=== PATIENT | female | born 1970 | race Two or more races ===

== ENCOUNTER 2019-12-11 06:36 | Day surgery (SDC) | payer OTHER ==
[~2019-12-11] VITALS: Ht 177.8 cm; Wt 144.2 kg
[2019-12-11] VITALS (9 sets, daily range): BP systolic 98–146; BP diastolic 55–89
[~2019-12-11 06:36] MED LIST: DEPAKOTE250 MG PO; LEVOTHYROXINE125 MCG ORAL; VENLAFAXINE HCL25 MG ORAL; ceFAZolin 1gm IVPB IVPB ONE; celeBREX 200mg Cap **SURGERY PATIENTS ONLY ORAL ONE; oxyCONTIN 20mg tab ORAL ONE
[2019-12-11] MEDS ORDERED: Ketorolac 30mg Inj ONE (08:19)
[2019-12-11] MEDS ORDERED: Bupivacaine 0.25% Inj 30ml INJ ONE (08:19)
[2019-12-11] MEDS ORDERED: Kenalog-40 1ml Vial ONE (08:19)
[2019-12-11] MEDS ORDERED: Lidocaine 1% 10mg/ml/Epi 0.005mg/ml 30ml vial INJ ONE (08:19)
[2019-12-11] MEDS ORDERED: Duramorph PF 5mg/10ml amp ONE (08:19)
[2019-12-11] MEDS ORDERED: Propofol 200mg/20ml IV ONE ×2 (08:27→08:44)
[2019-12-11] MEDS ORDERED: Lidocaine 1% MPF 10mg/ml 5ml ONE (08:27)
[2019-12-11] MEDS ORDERED: Midazolam 2mg/2ml Inj ONE (08:28)
[2019-12-11] MEDS ORDERED: fentaNYL 100 mcg/2 mL IV ONE (08:28)
[2019-12-11] MEDS ORDERED: LR 1000ml ONE (08:30)
[2019-12-11] MEDS ORDERED: Sterile Water Irrig 1000ml IRRIG ONE (08:30)
[2019-12-11] MEDS ORDERED: LR 1000ml 1,000 ML IVLG SCH (08:33)
--- NOTE | 2019-12-11 08:33 | Anethesia Preoperative Eval ---
Anesthesia Pre-op PMH/ROS General Date of Evaluation: Dec 11, 2019 Anesthesiologist: Gopi ASA Score: ASA 3 Mallampati Score Class I : Soft palate, uvula, fauces, pillars visible Class II: Soft palate, uvula, fauces visible Class III: Soft palate, base of uvula visible Class IV: Only hard plate visible Mallampati Classification: Class III Surgeon: Jaquan Diagnosis: left knee pain Surgical Procedure: left knee arthroscoyp Anesthesia History: none Family History: no anesthesia problems Allergies: Coded Allergies: No Known Allergies (Unverified , 12/10/19) Medications: see eMAR Patient NPO?: Yes NPO Date: Dec 11, 2019 NPO Time: 00:00 Past Medical History Cardiovascular: Denies: HTN, CAD, CT, valve dz, arrhythmia, other Pulmonary: Denies: asthma, COPD, VISHAL, other Gastrointestinal/Genitourinary: Denies: GERD, CRI, ESRD, other Neurologic/Psychiatric: Reports: depression/anxiety, other - bipolar; Denies: dementia, CVA, TIA Endocrine: Reports: hypothyroidism; Denies: DM, steroids, other HEENT: Denies: cataract (L), cataract (R), glaucoma, [place] (L), [place] (R), other Hematology/Immune: Reports: anemia; Denies: DVT, bleeding disorder, other Musculoskeletal/Integumentary: Reports: OA; Denies: RA, DJD, DDD, edema, other Other: obesity PSxH Narrative: acl repair, right breawst reduction, gastric bypass, helio, appy, jaw sx Anesthesia Pre-op Phys. Exam Physician Exam Last Vital Signs Date Time Temp Pulse Resp B/P (MAP) Pulse Ox O2 Delivery O2 Flow Rate FiO2 12/11/19 07:27 97.0 86 20 146/88 99 Room Air Constitutional: NAD Cardiovascular: RRR Respiratory: CTA Airway Exam Mallampati Score: Class III MO: limited Neck: short, obese ROM: limited Anesthesia Pre-op A/P Labs see chart Urine Test Test 12/11/19 06:55 Urine HCG, Qualitative Negative (NEGATIVE) Studies Pre-op Studies: EKG - sr Risk Assessment & Plan Assessment: ASA III Plan: GA Status Change Before Surgery: No Pre-Antibiotics Drug: Ancef 2g Given Within 1 Hr of Incision: Yes Kierra Liz MD Dec 11, 2019 08:33
[2019-12-11] MEDS ORDERED: NS Irrig 4000ml IRRIG ONE (08:40)
[2019-12-11] MEDS ORDERED: Metoclopramide 10mg/2ml Inj IVP PRN ×2 (08:45→09:00)
[2019-12-11] MEDS ORDERED: LORazepam Inj 2mg/ml 1ml IV PRN (08:45)
[2019-12-11] MEDS ORDERED: Midazolam 2mg/2ml Inj IVP PRN (08:45)
[2019-12-11] MEDS ORDERED: Ketorolac 30mg Inj IV PRN (08:45)
[2019-12-11] MEDS ORDERED: fentaNYL 100 mcg/2 mL IV PRN (08:45)
[2019-12-11] MEDS ORDERED: Hydromorphone 0.5mg/0.5ml inj IVP PRN (08:45)
[2019-12-11] MEDS ORDERED: DiphenhydrAMINE 50mg/ml Inj IVP PRN (08:45)
[2019-12-11] MEDS ORDERED: Duramorph PF 5mg/10ml amp IT ONE (09:10)
--- NOTE | 2019-12-11 09:24 | Immediate Post-Op Evaluation ---
Immediate Post-Op Evalulation Immediate Post-Op Evalulation Procedure: Lef tknee arthrosocpy Date of Evaluation: Dec 11, 2019 Time of Evaluation: 09:27 IV Fluids: 600 Blood Products: 0 Estimated Blood Loss: min Urinary Output: 0 Blood Pressure Systolic: 98 Blood Pressure Diastolic: 66 Pulse Rate: 77 Respiratory Rate: 16 O2 Sat by Pulse Oximetry: 100 Temperature (Fahrenheit): 97 Pain Score (1-10): 0 Nausea: No Vomiting: No Complications 0 Patient Status: awake, reacts, patent, none Hydration Status: adequate Drug: Ancef 2g Given Within 1 Hr of Incision: Yes Kierra Liz MD Dec 11, 2019 09:24
--- NOTE | 2019-12-11 09:25 | 48 Hour Post Anesthesia Eval ---
Post Anesthesia Evaluation Procedure: Lef tknee arthrosocpy Date of Evaluation: Dec 11, 2019 Airway: patent Nausea: No Vomiting: No Pain Intensity: 0 Hydration Status: adequate Cardiopulmonary Status: at baseline Mental Status/LOC: patient returned to baseline Post-Anesthesia Complications: 0 Follow-up care needed: ready to discharge Kierra Liz MD Dec 11, 2019 09:25
[2019-12-11] MEDS ORDERED: Tylenol #3 tab (300mg/30mg) ORAL PRN (10:00)
[2019-12-11] MEDS ORDERED: HYDROmorphone 1mg/ml Carpuject SUBQ PRN (10:00)
[2019-12-11] MEDS ORDERED: D5 1/2NS 1,000 ML IV SCH (10:00)
[2019-12-11] MEDS ORDERED: HYDROcodone/Acetamin 5/325 tab ORAL PRN (10:00)
--- NOTE | 2019-12-11 19:15 | Operative Note - Dictated ---
DATE OF OPERATION: 12/11/2019 PREOPERATIVE DIAGNOSES: 1. Left knee medial meniscus tear. 2. Left knee chondral damage. POSTOPERATIVE DIAGNOSES: 1. Left knee posterior horn medial meniscus tear extending to middle body. 2. Grade 2 chondral damage patellofemoral compartment. 3. Hypertrophic synovial tissue medial and lateral patellofemoral compartment. PROCEDURES: 1. Left knee arthroscopic partial medial meniscectomy. 2. Gentle chondroplasty patellofemoral compartment. 3. Synovectomy medial and lateral patellofemoral compartment. SURGEON: José Miguel Partida M.D. ANESTHESIA: MAC local. INDICATION FOR PROCEDURE: The patient is a pleasant female, who has progressive left knee pain. She failed conservative treatment and continued pain, worsening symptoms. She was indicative of operative fixation with partial medial meniscectomy. Risks, limitations, expectations, and complications of the procedure were discussed in detail. All questions addressed. DESCRIPTION OF PROCEDURE: After informed consent was obtained, the patient was brought to the operating room and placed the patient under general anesthesia. The left leg was prepped and draped in a sterile manner. Time-out was performed. Inferolateral stab incision was then made. Trocar was introduced into the knee joint. Systematic tour of the knee was performed. There was hypertrophic synovial tissue making visualization somewhat difficult. Medial compartment was entered. There was significant tear of the posterior horn medial meniscus and in the middle body. Partial meniscectomy was performed using a shaver down to stable tissue. Once that was done, the synovectomy and excision of the fat pad with extended in the inferior notch lateral compartment, ACL was probed, noted to be intact. Lateral compartment entered, free from chondral damage. Camera was repositioned in the patellofemoral compartment. Excision of the fat pad and synovium was performed slap better positioned patellofemoral compartment showed grade 2 chondral damage in the medial patellar facet. Gentle chondroplasty was performed. Once that was done, the instruments were removed. Portal sites were closed with 3-0 Monocryl sutures. ESTIMATED BLOOD LOSS: None. COMPLICATIONS: None. SPECIMENS: None. IMPLANTS: None. José Miguel Partida M.D. DR: LOUISA JOB#: [id number] CC: GAIL
--- NOTE | 2019-12-14 13:11 | Pre-Procedure Note/Attestation ---
Pre-Procedure Note/Attestation Complete Prior to Procedure Planned Procedure: left Procedure Narrative: knee arthroscopis menisectomy, possible synovectomy, possible chodroplasty Indications for Procedure Pre-Operative Diagnosis: left knee meniscus tear, possible chondrol damage Attestation I attest that I discussed the nature of the procedure; its benefits; risks and complications; and alternatives (and the risks and benefits of such alternatives ), prior to the procedure, with the patient (or the patient's legal solar sales representative and assessor). I attest that, if there was a reasonable possibility of needing a blood transfusion, the patient (or the patient's legal solar sales representative and assessor) was given the [facility] standardized written summary, pursuant to the [place] Blood Safety Act ([place] Health and Safety Code # 1645, as amended). I attest that I re-evaluated the patient just prior to the surgery and that there has been no change in the patient's H&P, except as documented below: José Miguel Partida MD Dec 14, 2019 13:11
--- NOTE | 2019-12-14 13:11 | Operative Note - PDOC ---
Operative Note Operative Note Pre-op Diagnosis: left knee meniscus tear, possible chondrol damage Procedure: see op report Post-op Diagnosis: same as pre-op plus Anesthesia: MAC Specimen: none Complications: none Condition: stable Estimated Blood Loss: none Implant(s) used?: No José Miguel Partida MD Dec 14, 2019 13:11
== END 2019-12-11 11:00 | disposition home or self-care (01) ==
LOC: SUR 06:36
DX: S83.242A Other tear of medial meniscus, current injury, left knee, initial encounter (principal); M67.262 Synovial hypertrophy, not elsewhere classified, left lower leg; X58.XXXA Exposure to other specified factors, initial encounter; Y92.9 Unspecified place or not applicable; F32.9 Major depressive disorder, single episode, unspecified; F41.9 Anxiety disorder, unspecified; F31.9 Bipolar disorder, unspecified; M19.90 Unspecified osteoarthritis, unspecified site; E66.9 Obesity, unspecified; Z98.84 Bariatric surgery status; Z90.49 Acquired absence of other specified parts of digestive tract; Z90.89 Acquired absence of other organs; Z68.42 Body mass index [BMI] 45.0-49.9, adult
CPT/HCPCS: 29876; 29881; 81025; J0690; J1885; J2250; J2405; J2704; J2765; J3010; J3301; J3490; J7120; 94003; 94150